=== PATIENT | female | born 1980 | race Caucasian/White ===

== ENCOUNTER 2017-01-20 08:21 | Emergency (ER) | payer OTHER, MEDICAID ==
[~2017-01-20 08:21] MED LIST: ATIVAN1 M2; BENADRYL25 MG; CARBAMAZEPINE200 M5 PO; CEFDINIR300 M1 PO; FLEXERIL10 MG PO; FOLIC ACID0.4 M1; FOLIC ACID1 M1 PO; FOLIC ACID1 MG; IBUPROFEN800 M1 PO; IRON18 M1 PO; IRON325 ( 65; LAMICTAL150 MG; LAMICTAL200 MG; LAMICTAL200 MG PO; LAMICTAL25 M; LAMICTAL25 MG; LORAZEPAM1 M1 PO; NORCO 5/325 TAB1 TAB PO; PRENATAL VITAM1 EAC6 PO; PRENATAL1 TAB; VALTREX500 MG; VALTREX500 MG PO; ZOFRAN4 MG PO
[2017-01-20] MEDS ORDERED: ATIVAN1 M2 PO ×3 (09:23→09:30)
== END 2017-01-20 09:30 ==
LOC: EDMED 08:21
DX: G40.909 Epilepsy, unspecified, not intractable, without status epilepticus (principal); Z79.899 Other long term (current) drug therapy